=== PATIENT | male | born 1935 ===

== ENCOUNTER 2024-05-31 06:15 | Inpatient (IN) | payer MEDICARE, SELFPAY ==
[2024-05-14 12:43] VITALS: BMI 30.2
[2024-05-15 10:01] LABS: Glycohemoglobin (HgbA1c) 5.3 % (4.0-5.6)
[2024-05-28 10:04] VITALS: BMI 30.2
[2024-05-31] VITALS (14 sets, daily range): BP systolic 88–145; BP diastolic 45–74; PULSE 63; BMI 30.2
[2024-05-31] MEDS: BACTROBAN NASAL 1 GRAM NASAL (07:24)
[2024-05-31] MEDS: CELEBREX 200 MG PO (07:25)
[2024-05-31] MEDS: TYLENOL 650 MG PO ×4 (07:25→19:36)
[2024-05-31] MEDS: NORMOSOL-R/PLASMALYTE-A 1000 IV (07:27)
--- NOTE | 2024-05-31 07:46 | PTCARENOTE ---
Patients BUN and CR levels are elevated. Contacted Anesthesia to see if they wanted the Normosol switched to NSS. New orders put in. Will monitor patient.
--- NOTE | 2024-05-31 09:20 | W.PN.ORTHO ---
Today's Communication / Plan
-
D/c when clinically stable.
Assessment
.
Distal Motor Intact: Yes
Dressing:
Scant areas of incisional bleeding.
Assessment:
L hip OA s/p L ALDAIR w/ Dr Miramontes 05/31/24
- s/p R ALDAIR 1992
DVT prophylaxis - Eliquis 2.5 mg PO BID x4 weeks per heme, b/l venous foot pumps
- Will transition back to ASA 81 mg daily after Eliquis
HTN - + parameters - monitor BP
CHF, mildly reduced EF - reduce hourly IVF rate to prevent fluid overload
- Resume Lasix w/ BP parameters
CKD 3 - minimize nephrotoxins
Small hiatal hernia, h/o GI bleed - add PPI
BPH s/p robotic prostatectomy 2020 - monitor voids
- Flomax prn
Essential thrombocythemia - followed by heme - continue Hydroxyurea
- Pre-op platelet ct WNL
- Eliquis for DVT prevention
Multifactorial anemia - non-invasive H&H in AM
- Injectafer previously
- Continue PO iron
Chronic LBBB
CAD
PVD
Essential Tremor of b/l hands
Bullous pemphigoid
Recent groin rash (fungal vs inflammatory) � tx Diflucan w/ transition to�Clotrimazole cream prn, nystatin powder BID-TID
Anxiety
Depression
[place]
Has prophylactic Cefadroxil upon d/c
Plan
.
Surgery / Date: L ALDAIR w/ Dr Miramotnes 05/31/24
DVT Prophylaxis: Other (Eliquis )
Activity:
Out of bed.
PT/OT
Discharge Plan: Home w/ Outpatient PT
Subjective
.
.:
Patient resting comfortably in PACU.
L hip pain minimal and currently well tolerated.
Denies any new complaints.
Vital Signs and Labs
.
Vital Signs and Labs:
Lab Results
05/14/24 11:52
05/14/24 11:52
Temp Pulse Resp BP Pulse Ox
97.2 F 65 16 124/45 98
05/31/24 07:05 05/31/24 07:05 05/31/24 07:05 05/31/24 07:05 05/31/24 07:05
Physical Exam
-
HEENT: No pallor, cyanosis, or jaundice. Throat clear.
NECK: Supple. No JVD.
RESPIRATORY: Lungs clear to auscultation.
CVS: S1, S2 normal. RRR.�
ABDOMEN: Soft, non-tender. No distension. Obese.
EXTREMITIES: Strength equal, no calf pain with palpation/dorsiflexion. Calves soft.
RIGGER THIRD: AOx3. No focal deficits. research chemist grossly intact
[2024-05-31] MEDS: ROXICODONE 5 MG PO (11:18)
--- NOTE | 2024-05-31 11:31 | PTCARENOTE ---
Pt arrived to 2S in bed. Full assessment completed. L hip DSG with a scant amount of drainage noted, ice pack in use. B/L LE's with decreased movement, neurovascular assessment otherwise WDL. Bed locked and in the lowest position, safety maintained.
Oriented to room and call martin.
[2024-05-31] MEDS: LASIX PO (12:27)
[2024-05-31] MEDS: PROTONIX 40 MG PO (12:30)
[2024-05-31] MEDS: LIPITOR 20 MG PO (12:31)
[2024-05-31] MEDS: VITAMIN D3 (cholecalciferol) 50 MCG PO (12:31)
[2024-05-31] MEDS: HYDREA 500 MG PO (12:33)
[2024-05-31] MEDS: NSS 1000 IV (12:38)
[2024-05-31] MEDS: FEOSOL 325 MG PO (12:38)
[2024-05-31] MEDS: ANCEF 5 IV (16:09)
--- NOTE | 2024-05-31 18:05 | PTCARENOTE ---
Pt with no urine output post surgery. Pt denies discomfort/ urge to void. Bladder scan 511. Pt refusing straight cath at this time, asking to try PRN flomax and reassess. Dr Roper made aware, care ongoing.
[2024-05-31] MEDS: FLOMAX 0.4 MG PO (18:10)
[2024-05-31] MEDS: BACTROBAN 2% OINTMENT 1 APPLIC NASAL (19:34)
[2024-05-31] MEDS: COLACE 100 MG PO (19:34)
[2024-05-31] MEDS: ELIQUIS 2.5 MG PO (19:35)
[2024-05-31] MEDS: COREG 6.25 MG PO (19:35)
[2024-05-31] MEDS: SENOKOT 17.2 MG PO (19:35)
[2024-05-31] MEDS: HYDREA PO (21:00)
[2024-05-31] MEDS: ROXICODONE 10 MG PO (21:49)
[2024-06-01] VITALS (7 sets, daily range): BP systolic 107–157; BP diastolic 55–75; PULSE 68; BMI 31.0
[2024-06-01] MEDS: TYLENOL PO (00:33)
[2024-06-01] MEDS: ANCEF 5 IV (00:45)
--- NOTE | 2024-06-01 00:52 | W.PN.UPDATE ---
Update Note
Progress Note Update
Called to patient room to explain rationale for holding Entresto. Explained issues with orthostasis post operatively especially when ambulating or moving around and in combination with taking narcotic pain mediciation.. He is also requesting his
Ambien be left at the bedside and I explained we cannot do that so we agreed on a time for nursing to bring it in.
--- NOTE | 2024-06-01 02:48 | PTCARENOTE ---
0230 - pt upset about BP medication parameters. House FRONT DESK CLERK was in earlier to see pt and reiterated education regarding reasons orthopedic surgeons place parameters on ortho pt's BP meds. Pt states he will if he does not receive his entresto now.
Pt irate and threatened to go to ED for treatment. TT manager oncology physician - Dr. Roper who ordered a 1x dose of entresto now. Pt's BP 149/69 HR 61. Assessment ongoing.
[2024-06-01] MEDS: TYLENOL 650 MG PO ×3 (03:05→12:04)
[2024-06-01] MEDS: ENTRESTO 49 MG/51 MG 1 TAB PO (03:05)
[2024-06-01] MEDS: COLACE PO (07:56)
[2024-06-01] MEDS: SENOKOT PO (07:56)
[2024-06-01] MEDS: PROTONIX PO (07:56)
[2024-06-01] MEDS: COREG 6.25 MG PO (07:57)
[2024-06-01] MEDS: FEOSOL 325 MG PO (07:57)
[2024-06-01] MEDS: ELIQUIS 2.5 MG PO (07:57)
[2024-06-01] MEDS: VITAMIN D3 (cholecalciferol) 50 MCG PO (07:57)
[2024-06-01] MEDS: LIPITOR 20 MG PO (07:59)
[2024-06-01] MEDS: HYDREA 500 MG PO (07:59)
[2024-06-01] MEDS: LASIX 40 MG PO (07:59)
[2024-06-01] MEDS: BACTROBAN 2% OINTMENT 1 APPLIC NASAL (08:00)
[2024-06-01] MEDS: ROXICODONE 5 MG PO ×2 (08:04→14:51)
[2024-06-01] MEDS: FLOMAX 0.4 MG PO (08:09)
--- NOTE | 2024-06-01 11:20 | CM ---
Pt seen at bedside w/ spouse re d/c plan.
Pt and spouse reside in a multi-story home w/ 1 step to enter. !st flr set up.
[place] throughout home w/ use of walker. Utilizes bilateral trekking poles in the community
Denies financial insecurities
PCP confirmed, Charly Gaviria. [facility] pharmacy: Dr. Scribbles
PT/OT rec OP therapy. Confirmed w/ pt set up at [facility] physical therapy in [place]. Start of care, 06/02.
IMM completed day prior and is on pt chart
will transport home and feels comfortable w/ car transfers
Plan: Home w/ OP PT/OT
[2024-06-01] MEDS: LIDOCAINE 4% PATCH 2 PATCH TOPICAL (12:03)
--- NOTE | 2024-06-01 12:26 | W.PN.ORTHO ---
Today's Communication / Plan
-
Monitor voiding. Replace cohn cath if indicated.
D/c likely for later today.
Assessment
.
Distal Motor Intact: Yes
Dressing:
Scant old incisional drainage.
Assessment:
L hip OA s/p L ALDAIR w/ Dr Miramontes 05/31/24
- s/p R ALDAIR 1992
DVT prophylaxis - Eliquis 2.5 mg PO BID x4 weeks per heme, b/l venous foot pumps
- Will transition back to ASA 81 mg daily after Eliquis
L thigh pain, likely related to OA/recent surgery - add Lidocaine patches
- Will Rx a muscle relaxant at [facility]
HTN - + parameters - BPs overall stable
CHF, mildly reduced EF - reduced hourly IVF rate to prevent fluid overload
- Resumed Lasix, Entresto w/ BP parameters
CKD 3 - continue to minimize nephrotoxins
Small hiatal hernia, h/o GI bleed - add PPI
Post surgical urinary retention w/ h/o BPH s/p robotic prostatectomy 2020 - Cohn cath overnight removed POD 1; voiding trial to take place
- Continue Flomax
- Given Lasix this AM
- Adequate hydration, frequent ambulation encouraged
- If retention continues, will need cohn cath upon d/c. Pt is aware to call his routine urologist for voiding trial should cohn be needed
Essential thrombocythemia - followed by heme - continue Hydroxyurea
- Pre-op platelet ct WNL
- Eliquis for DVT prevention
Multifactorial anemia - non-invasive H&H 11.8 POD 1
- Injectafer previously
- Continue PO iron
Chronic LBBB
CAD
PVD
Essential Tremor of b/l hands
Bullous pemphigoid
Recent groin rash (fungal vs inflammatory) � tx Diflucan w/ transition to�Clotrimazole cream prn, nystatin powder BID-TID
Anxiety
Depression
[place]
Has prophylactic Cefadroxil upon d/c
Plan
.
Surgery / Date: L ALDAIR w/ Dr Miramontes 05/31/24
DVT Prophylaxis: Other (Eliquis )
Activity:
Out of bed.
PT/OT
Discharge Plan: Home w/ Outpatient PT
Subjective
.
.:
Patient examined resting in his chair.
Acute on chronic L thigh pain - lidocaine patches ordered.
Post-surgical urinary retention.
Vital Signs and Labs
.
Vital Signs and Labs:
Lab Results
05/14/24 11:52
05/14/24 11:52
Temp Pulse Resp BP Pulse Ox
97.7 F 67 18 120/66 98
06/01/24 11:00 06/01/24 11:00 06/01/24 11:00 06/01/24 11:00 06/01/24 11:00
Non-invasive Hgb result: 11.8
Physical Exam
-
HEENT: No pallor, cyanosis, or jaundice. Throat clear.
NECK: Supple. No JVD.
RESPIRATORY: Lungs clear to auscultation.
CVS: S1, S2 normal. RRR.�
ABDOMEN: Soft, non-tender. No distension. Obese.
EXTREMITIES: Strength equal, no calf pain with palpation/dorsiflexion. Calves soft.
LEAD FRONT DESK AGENT: AOx3. No focal deficits. freelance photographer grossly intact
--- NOTE | 2024-06-01 14:26 | W.DS.TRANS ---
DC Summary - Sales Operations Assistant
-
Discharge Instructions:
Sleep Apnea Risk Intermediate
Discharge Diagnosis/Procedures L hip OA s/p L ALDAIR w/ Dr Miramontes 05/31/24
Diet Regular
Activity As tolerated,With Walker
Driving Restrictions Not until seen by your Dr
Bathing Restrictions OK to Shower
Other Services PT
Wound Care Dressing to be removed 1 week post-surgery.
[place] to be removed at 2 week follow-up with
surgeon's office.
Specialty Instructions Weigh Daily
Instructions: How to Care for Your Schofield Catheter, Male
Stand-Alone Forms: Total Hip/Knee Replacement D/C
Changes to Home Medications: Yes
Discharge Medications:
DC Medications w/original date entered in [email or web address]
atorvastatin 20 mg tablet 20 mg PO DAILY High Cholesterol 05/25/24
carvedilol 6.25 mg tablet (Coreg) 6.25 mg PO BID Blood Pressure 05/25/24
cholecalciferol (vitamin D3) 50 mcg (2,000 unit) capsule (Vitamin D3) 50 mcg PO DAILY Supplement 05/25/24
dupilumab 300 mg/2 mL subcutaneous pen injector (Dupixent) 300 mg SC Q2W Monoclonal Antibody, Anti 05/25/24
hydroxyurea 500 mg capsule 500 mg PO .MOWEFRBID Cancer 05/25/24
hydroxyurea 500 mg capsule 500 mg PO .TUTHDAILY Cancer 05/25/24
iron bis glycinate sury 28 mg iron-vit C 60 mg-FA 400 mcg-B12 8mcg cap (Gentle Iron) 1 cap PO DAILY Supplement 05/25/24
mupirocin 2 % topical ointment 1 applic topical BID Infection 05/25/24
Saccharomyces boulardii 250 mg capsule (Florastor) 250 mg PO BID #14 caps 06/01/24
acetaminophen 500 mg tablet (Tylenol Extra Strength) 1,000 mg (2 x 500 mg) PO Q6H #60 tabs 06/01/24
apixaban 2.5 mg tablet (Eliquis) 2.5 mg PO BID Blood clot prevention/tx #60 tabs 06/01/24
cefadroxil 500 mg capsule 500 mg PO Q12H #14 caps 06/01/24
cyclobenzaprine 5 mg tablet 5 mg PO HS PRN muscle spasm #10 tabs 06/01/24
docusate sodium 100 mg capsule 100 mg PO BID #30 caps 06/01/24
furosemide 40 mg tablet (Lasix) 40 mg PO DAILY Fluid Retention/Swelling #0 tabs 06/01/24
lidocaine 4 % topical patch 2 patch topical HS #30 ea 06/01/24
ondansetron HCl 4 mg tablet 4 mg PO Q6H PRN nausea and vomiting #30 tabs 06/01/24
oxycodone 5 mg tablet 5 mg PO Q4HPRN PRN moderate-severe pain #30 tabs 06/01/24
pantoprazole 40 mg tablet,delayed release 40 mg PO DAILY #30 tabs 06/01/24
sacubitril 49 mg-valsartan 51 mg tablet (Entresto) 1 tab PO BID Heart Failure #0 tabs 06/01/24
sennosides 8.6 mg tablet (Senna Laxative) 17.2 mg (2 x 8.6 mg) PO BID #30 tabs 06/01/24
tamsulosin 0.4 mg capsule 0.4 mg PO BID urinary retention #14 caps 06/01/24
zolpidem 5 mg tablet (Ambien) 5 mg PO HS PRN insomnia #0 tabs 06/01/24
Home Medication Changes
Saccharomyces boulardii 250 mg capsule (Florastor) 250 mg PO BID #14 caps 06/01/24
acetaminophen 500 mg tablet (Tylenol Extra Strength) 1,000 mg (2 x 500 mg) PO Q6H #60 tabs 06/01/24
apixaban 2.5 mg tablet (Eliquis) 2.5 mg PO BID Blood clot prevention/tx #60 tabs 06/01/24
cefadroxil 500 mg capsule 500 mg PO Q12H #14 caps 06/01/24
cyclobenzaprine 5 mg tablet 5 mg PO HS PRN muscle spasm #10 tabs 06/01/24
docusate sodium 100 mg capsule 100 mg PO BID #30 caps 06/01/24
lidocaine 4 % topical patch 2 patch topical HS #30 ea 06/01/24
ondansetron HCl 4 mg tablet 4 mg PO Q6H PRN nausea and vomiting #30 tabs 06/01/24
oxycodone 5 mg tablet 5 mg PO Q4HPRN PRN moderate-severe pain #30 tabs 06/01/24
pantoprazole 40 mg tablet,delayed release 40 mg PO DAILY #30 tabs 06/01/24
sennosides 8.6 mg tablet (Senna Laxative) 17.2 mg (2 x 8.6 mg) PO BID #30 tabs 06/01/24
tamsulosin 0.4 mg capsule 0.4 mg PO BID urinary retention #14 caps 06/01/24
Pending Results: No
== END 2024-06-01 15:41 | disposition home or self-care (01) | DRG 470 ==
LOC: 2 SOUTH 06:15
PROVIDERS: ADMITTING PHYSICIAN Specialist; FAMILY PHYSICIAN Internal Medicine
PROC: 0SRB0JA Replacement of Left Hip Joint with Synthetic Substitute, Uncemented, Open Approach (ICD-10-PCS; 2024-05-31)
DX: M16.12 Unilateral primary osteoarthritis, left hip (principal); I13.0 Hypertensive heart and chronic kidney disease with heart failure and stage 1 through stage 4 chronic kidney disease, or unspecified chronic kidney disease; I50.22 Chronic systolic (congestive) heart failure; N18.30 Chronic kidney disease, stage 3 unspecified; N40.1 Benign prostatic hyperplasia with lower urinary tract symptoms; D47.3 Essential (hemorrhagic) thrombocythemia; I44.7 Left bundle-branch block, unspecified
CPT/HCPCS: 36415; 73502; 83036; 86850; 86900; 86901; 87070; 97110; 97116; 97163; 97167; 97530; 97535; C1713; C1776